=== PATIENT | female | born 1990 | race Two or more races ===

== ENCOUNTER 2017-04-01 02:13 | Emergency (ER) | payer SELFPAY ==
[~2017-04-01] VITALS: Ht 167.6 cm; Wt 102.8 kg
[2017-04-01] MEDS ORDERED: KETOROLAC 30 MG/1 ML IVPush ONE (03:00)
[2017-04-01] MEDS ORDERED: SODIUM CHLORIDE 0.9% 1,000ML IV ONE (03:00)
[2017-04-01] MEDS ORDERED: SODIUM CHLORIDE FLUSH 10ML SYR IVF ONE (03:00)
[2017-04-01 03:23] LABS: HCG UR OBC PASS
[2017-04-01] MEDS ORDERED: KETOROLAC 30 MG/1 ML ONE (03:38)
[2017-04-01 03:50] LABS: ASPARTATE AMINO TRANSFERASE 29 U/L (15-37); BLOOD UREA NITROGEN 11 mg/dL (7-18)
[2017-04-01] MEDS ORDERED: MORPHINE SULFATE 4 MG/ML, 1ML IVPush ONE (05:00)
[2017-04-01] MEDS ORDERED: MORPHINE SULFATE 4 MG/ML, 1ML ONE (05:04)
[2017-04-01 05:26] VITALS: BP 144/80
== END 2017-04-01 05:29 | disposition home or self-care (01) ==
LOC: ED 05:21
DX: N83.202 Unspecified ovarian cyst, left side (principal); N83.201 Unspecified ovarian cyst, right side; R10.9 Unspecified abdominal pain; R30.0 Dysuria
CPT/HCPCS: 36415; 74176; 76770; 80053; 81001; 81025; 84703; 85025; 87086; 96361; 96374; 96375; 99285; J1885; J7030

== ENCOUNTER 2021-03-19 10:50 | Emergency (ER) | payer SELFPAY ==
[~2021-03-19] VITALS: Ht 165.1 cm; Wt 104.1 kg
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
--- NOTE | 2021-03-19 13:12 | NUR ---
PT TO CT
[2021-03-19] MEDS ORDERED: KETOROLAC 30 MG/1 ML ONE (14:12)
[2021-03-19 14:27] VITALS: BP 140/90
[2021-03-19] MEDS ORDERED: KETOROLAC 30 MG/1 ML IM ONE (14:30)
--- NOTE | 2021-03-19 14:34 | NUR ---
BREAK RN- DC INSTRUCTIONS REVIEWED
== END 2021-03-19 14:42 | disposition home or self-care (01) ==
LOC: ED 14:38
DX: S00.83XA Contusion of other part of head, initial encounter (principal); S09.90XA Unspecified injury of head, initial encounter; H11.33 Conjunctival hemorrhage, bilateral; G44.209 Tension-type headache, unspecified, not intractable; M54.2 Cervicalgia; E66.9 Obesity, unspecified; X58.XXXA Exposure to other specified factors, initial encounter; Y93.89 Activity, other specified; Y92.89 Other specified places as the place of occurrence of the external cause; Y99.8 Other external cause status
CPT/HCPCS: 70450; 70486; 72125; 96372; 99285; J1885